=== PATIENT | female | born 2000 | race Hispanic/Latino ===

== ENCOUNTER 2019-10-19 18:10 | Emergency (ER) | payer OTHER, SELFPAY ==
[~2019-10-19 18:10] MED LIST: Iopamidol 370 76% 100 ML VIAL ONE
[2019-10-19] MEDS ORDERED: Morphine 4 MG/ML VIAL ONE (18:41)
[2019-10-19] MEDS ORDERED: Ondansetron PF 4 MG/2 ML Vial ONE (18:41)
[2019-10-19 19:05] LABS: #Lymphocytes 1.5 thou/uL (1.20-3.40); #Monocytes 0.6 thou/uL (0.11-0.59); #Neutrophils 11.9 thou/uL (1.40-6.50); %Basophils 0.2 % (0.0-1.0); %Eosinophils 0.3 % (0.0-10.0); %Lymphocytes 10.6 % (21.0-51.0); %Monocytes 4.3 % (0.0-10.0); %Neutrophils 84.6 % (42.0-75.0); Hemoglobin 13.5 g/dL (12.0-16.0); Mean Corpuscular HGB CONC 32.2 g/dL (32.0-36.0); Mean Corpuscular Volume 90.1 fL (78.0-98.0); Mean Platelet Volume 9.1 fL (7.4-10.4); Platelet Count 353 thou/uL (130-400); RBC Distribution Width 12.3 % (11.5-14.5); Red Blood Cell (RBC) Count 4.66 mill/uL (4.20-5.40)
[2019-10-19 19:16] LABS: BHCG - Serum Negative (NEGATIVE); Pregs Control Background? CLEAR/WHITE (CLR/WHITE); Pregs Control Bar Appear? YES (CONTROL BAR)
[2019-10-19 19:27] LABS: ALT (SGPT) 11 U/L (8-55); AST (SGOT) 19 U/L (5-34); Albumin 4.4 g/dL (3.5-5.0); Alkaline Phosphatase 70 U/L (40-110); Anion Gap 16 mmol/L (10-20); BUN (Urea Nitrogen) 9 mg/dL (7.0-18.7); Bilirubin, Total 0.4 mg/dL (0.2-1.2); Calc. Creatinine Clearance 0 mL/min (70-130); Calcium 9.6 mg/dL (7.8-10.44); Carbon Dioxide 23 mmol/L (22-29); Chloride 105 mmol/L (98-107); Estimated GFR-MDRD Greater than 90; Globulin 3.4 g/dL (2.4-3.5); Glucose 100 mg/dL (70-105); Lipase 5 U/L (8-78); Potassium 3.5 mmol/L (3.5-5.1); Protein, Total 7.8 g/dL (6.0-8.3); Sodium 140 mmol/L (136-145)
--- NOTE | 2019-10-19 20:12 | CT ---
CT ABDOMEN AND PELVIS WITH CONTRAST: 10/19/19 HISTORY: Right upper quadrant pain after trauma. COMPARISON: None. FINDINGS: Lung bases are clear. No pericardial effusion. The liver, spleen, pancreas, adrenal glands and kidneys are without acute injury. The aortoiliac cont our is normal. Bilateral adnexal fullness. No free intraperitoneal gas or fluid. The appendix is visualized and is normal. No hydroureteronephrosis. No lumbar spine fracture. The spinous processes are intact. He osseous pelvis is intact. SI joints are intact. The visualized ribs are intact. The transverse processes are intact. IMPRESSION: No solid organ injury within the abdomen or pelvis. POS: HOME
--- NOTE | 2019-10-19 22:01 | ULT ---
ULTRASOUND GALLBLADDER RIGHT UPPER QUADRANT: 10/19/19 HISTORY: Abdominal pain. COMPARISON: Reference is made to a CT same day. The visualized portions of the aorta, IVC and pancreas are unremarkable. Hepatic echotexture is milagro l. Gallbladder wall thickness is normal. No hepatic mass. No intrahepatic or extrahepatic biliary dilatation. No cholelithiasis. Right kidney is normal. IMPRESSION: Normal exam. POS: HOME
== END 2019-10-19 23:52 | disposition home or self-care (01) ==
LOC: ERS 18:10
DX: R10.11 Right upper quadrant pain (principal); R51 Headache; F41.9 Anxiety disorder, unspecified; F31.9 Bipolar disorder, unspecified; Y04.0XXA Assault by unarmed brawl or fight, initial encounter
CPT/HCPCS: 74177; 76705; 80053; 83690; 84703; 85025; 96374; 96375; J2270; J2405; Q9967

== ENCOUNTER 2019-12-19 17:07 | Emergency (ER) | payer OTHER, SELFPAY ==
[2019-12-20 11:58] LABS: SARS-CoV-2 MS2 Positive; SARS-CoV-2 N Gene Negative; SARS-CoV-2 S Gene Negative; SARS-CoV-2 orf1ab Negative
== END 2019-12-19 18:36 | disposition home or self-care (01) ==
LOC: ERS 17:07
DX: R05 Cough (principal); R50.9 Fever, unspecified; R11.2 Nausea with vomiting, unspecified; R52 Pain, unspecified; Z20.828 Contact with and (suspected) exposure to other viral communicable diseases; F39 Unspecified mood [affective] disorder; F41.9 Anxiety disorder, unspecified
CPT/HCPCS: 87635; 99283; U0003